=== PATIENT | male | born 1975 | race Caucasian/White ===

== ENCOUNTER 2017-05-15 10:10 | Emergency (ER) | payer BC, OTHER ==
--- NOTE | 2017-05-15 11:29 | ERNOTE ---
Lower Extremity HPI - General Lower Extremities Pain: heel: right Time Seen by Provider: 05/15/17 10:56 Source: patient Exam Limitations: no limitations - Immun/Allergies/Home Medications Immunizations: IMMUNIZATION HX Immunizations Up to Date Yes History of Influenza Vaccine No Hx Pneumococcal Vaccination No Allergies/Adverse Reactions: Allergies Allergy/AdvReac Type Severity Reaction Status Date / Time No Known Allergies Allergy Verified 05/15/17 10:45 Home Medications: HOME MEDICATIONS buPROPion HCL [Wellbutrin XL] 150 mg PO DAILY 09/28/16 [Last Taken Unknown] Sulfamethoxazole/Trimethoprim [Bactrim Ds] 1 tab PO BID #20 tab 05/15/17 [Last Taken Unknown] - History of Present Illness Narrative: Patient cutting his toenails too short and the stem of the right great toe and he now is developed an ingrown toenail. He presents with mild to moderate pain some erythema and edema present of the right great toe on the medial surface. He is somewhat difficult weightbearing because of the pain but appears to be getting around all right he states. Occurred: other - over the past 2 or 3 days Method of Injury: Reports: no apparent injury Loss of Consciousness: Reports: no loss of consciousness Other Injuries: Reports: none Review of Systems - Review of Systems Constitutional: Present: See HPI EYE: Present: no symptoms reported ENT: Present: no symptoms reported Respiratory: Present: no symptoms reported Cardiology: Present: no symptoms reported Gastrointestinal/Abdominal: Present: no symptoms reported Genitourinary: Present: no symptoms reported Musculoskeletal: Present: joint swelling - actually the right great toe Skin: Present: no symptoms reported Neurological: Present: no symptoms reported Endocrine: Present: no symptoms reported Hematologic/Lymphatic: Present: no symptoms reported Psych: Present: no symptoms reported - Patient's Past Medical History Patient History - Medical: Chronic Pain, Other Patient History - Cardiac/Respiratory: Atrial Fibrillation Patient History - Cancer: No Hx of Cancer Patient History - Surgical Procedures: Back Surgery, Other Patient History - Other: None - Social History Living Situations: home Abuse History: No History of abuse Psych History: No pertinent hx Smoking Status: Never smoker Alcohol Use: rarely Drug Use: none - Immunizations Immunizations Up to Date: Yes Hx Pneumococcal Vaccination: No History of Influenza Vaccine: No Physical Exam - Physical Exam General Appearance: Present: wd/wn, alert, mild distress Eye Exam: Normal inspection: bilateral, PERRL: bilateral Ears, Nose, Throat: Present: normal ENT inspection, H, normal pharynx Neck: Present: normal inspection, nontender Respiratory: Present: no respiratory distress, normal breath sounds, no accessory muscle use, chest nontender, lungs clear Cardiovascular/Chest: Present: regular rate, rhythm, no murmur, normal peripheral pulses Gastrointestinal/Abdominal: Present: normal bowel sounds, nontender, nondistended, soft, no organomegaly Rectal Exam: Present: deferred Back Exam: Present: normal inspection, normal range of motion Extremity Exam: Present: normal range of motion, joint redness, joint swelling, extremity edema - of the right great toe Neurological Exam: Present: alert, oriented, normal mood/affect Skin Exam: Present: normal color, warm/dry Lymphatic Exam: Present: no adenopathy ED Progress - Vital Signs Patient's Vital Signs:: I have reviewed the patient's vital signs. Vital Signs: Vital Signs 05/15/17 10:41 Temperature 36.5 C Pulse Rate 90 Respiratory 16 Rate Blood Pressure 149/103 O2 Sat by Pulse 97 Oximetry - X-Ray X-Ray #1 X-Ray: toe Interpretation: Reviewed by me - Progress/Reassessment Chief Complaint: Lower Extremity Pain/ Injury Plan - Plan Plan: I discussed the ingrown toenail with Dr. Geneva Caro and patient will go home soak it in the absence WE'LL start him on some antibiotics and she will see him in the office. I suspect part of this nail will have to be revised and patient understands and agrees. Departure Clinical Impression: Ingrown right big toenail - Departure Disposition: Home self-care Condition: Good Instructions: Ingrown Toenail Referrals: Lissette Lim MD [Primary Care Provider] - Prescriptions: Sulfamethoxazole/Trimethoprim [Bactrim Ds] 1 tab PO BID #20 tab
[2017-05-15 13:11] VITALS: BP 144/94
== END 2017-05-15 11:30 | disposition home or self-care (01) ==
LOC: ER 10:10
DX: L60.0 Ingrowing nail (principal); I48.91 Unspecified atrial fibrillation; Z79.01 Long term (current) use of anticoagulants